=== PATIENT | male | born 1980 | race Caucasian/White ===

== ENCOUNTER 2017-01-11 14:25 | Emergency (ER) | payer SELFPAY ==
[~2017-01-11] VITALS: Ht 185.4 cm; Wt 93.5 kg
[2017-01-11 14:28] VITALS: Ht 185.4 cm; Wt 93.5 kg
[2017-01-11] MEDS ORDERED: IBUPROFEN 600 MG TAB PO ONE (15:00)
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
== END 2017-01-11 17:41 | disposition home or self-care (01) ==
LOC: FTE 14:25
DX: S90.111A Contusion of right great toe without damage to nail, initial encounter (principal); S33.5XXA Sprain of ligaments of lumbar spine, initial encounter; V49.40XA Driver injured in collision with unspecified motor vehicles in traffic accident, initial encounter
CPT/HCPCS: 72040; 72072; 72100; 73030; 73660

== ENCOUNTER 2017-01-19 14:49 | Emergency (ER) | payer SELFPAY ==
[~2017-01-19] VITALS: Ht 185.4 cm; Wt 95.0 kg
[2017-01-19 14:51] VITALS: Ht 185.4 cm; Wt 95.0 kg
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
== END 2017-01-19 17:56 | disposition home or self-care (01) ==
LOC: FTE 14:49
DX: S39.92XA Unspecified injury of lower back, initial encounter (principal); V89.2XXA Person injured in unspecified motor-vehicle accident, traffic, initial encounter
CPT/HCPCS: 72125; 72128